=== PATIENT | female | born 1960 ===

== ENCOUNTER 2022-07-02 15:18 | Emergency (ER) | payer OTHER ==
[~2022-07-02] VITALS: Ht 165.1 cm; Wt 61.7 kg
== END 2022-07-02 17:41 | disposition home or self-care (01) ==
LOC: ER 15:18
DX: M94.0 Chondrocostal junction syndrome [Tietze] (principal); Z88.8 Allergy status to other drugs, medicaments and biological substances

== ENCOUNTER 2024-01-15 14:03 | Outpatient (CLI) | payer OTHER | END 2024-01-15 14:17 | disposition home or self-care (01) | LOC: MAMO-SONO 14:03 | PROVIDERS: ATTEND General Practice | DX: N64.4 Mastodynia (principal); Z12.31 Encounter for screening mammogram for malignant neoplasm of breast; M54.2 Cervicalgia; M54.6 Pain in thoracic spine ==

== ENCOUNTER 2024-01-21 12:09 | Outpatient (CLI) | payer OTHER | END 2024-01-21 12:29 | disposition home or self-care (01) | LOC: MRI 12:09 | PROVIDERS: ATTEND General Practice | DX: M50.00 Cervical disc disorder with myelopathy, unspecified cervical region (principal) | CPT/HCPCS: 72141 ==

== ENCOUNTER 2024-07-01 12:14 | Outpatient (CLI) | payer OTHER ==
[2024-07-04] MEDS ORDERED: METAXALONE800 MG PO (11:11)
== END 2024-07-01 12:16 | disposition home or self-care (01) ==
LOC: RAD 12:14
PROVIDERS: ATTEND General Practice
DX: M25.521 Pain in right elbow (principal); M25.522 Pain in left elbow

== ENCOUNTER 2024-07-08 14:18 | Outpatient (CLI) | payer OTHER ==
[~2024-07-08 14:18] MED LIST: METAXALONE800 MG PO
== END 2024-07-08 14:31 | disposition home or self-care (01) ==
LOC: RAD 14:18
PROVIDERS: ATTEND General Practice
DX: R07.9 Chest pain, unspecified (principal); M25.512 Pain in left shoulder